=== PATIENT | female | born 1975 | race American Indian/Alaskan Native ===

== ENCOUNTER 2017-09-16 21:22 | Emergency (ER) | payer OTHER ==
[2017-09-16] MEDS ORDERED: DiphenhydrAMINE 50 mg/ml Inj IVP ONE (21:34)
--- NOTE | 2017-09-16 21:36 | ED PDOC ---
Arrival/HPI - General Time Seen by Provider: 09/16/17 21:27 Historian: Patient - History of Present Illness Narrative History of Present Illness (Text): 09/16/17 21:33 Laura Bates is a 41 year old female, whose past medical history includes chronic migraines, who presents to the emergency department complaining of headache with associated dizziness and nausea for a few hours tonight. Patient states headache seems more severe than usual. Patient denies any neck pain,back pain,fevers, chest pain, or any other complaints at this time. Time/Duration: 1-3 hours Symptom Onset: Gradual Symptom Course: Unchanged Activities at Onset: Light Context: Home Past Medical History - Provider Review Nursing Documentation Reviewed: Yes - Infectious Disease Hx of Infectious Diseases: None - Tetanus Immunization Tetanus Immunization: Up to Date - Renal Hx Kidney Stones: Yes (right) - Gastrointestinal Hx Diverticulitis: Yes - Psychiatric Hx Depression: No Hx Emotional Abuse: No Hx Physical Abuse: No Hx Substance Use: No - Surgical History Hx Tubal Ligation: Yes - Suicidal Assessment Feels Threatened In Home Enviroment: No Family/Social History - Physician Review Nursing Documentation Reviewed: Yes Family/Social History: No Known Family HX Smoking Status: Unknown If Ever Smoked Hx Alcohol Use: No Hx Substance Use: No Hx Substance Use Treatment: No Allergies/Home Meds Allergies/Adverse Reactions: Allergies ibuprofen [From Motrin] Allergy (Verified 09/16/17 21:32) SWELLING Home Medications: Home Meds Medication Instructions Recorded Confirmed Docusate [Colace] 100 mg PO HS 07/12/15 07/12/15 Review of Systems - Physician Review All systems were reviewed & negative as marked: Yes - Review of Systems Constitutional: absent: Fevers, Night Sweats Eyes: absent: Vision Changes ENT: absent: Hearing Changes Respiratory: absent: SOB, Cough Cardiovascular: absent: Chest Pain Gastrointestinal: Nausea. absent: Abdominal Pain Genitourinary Female: absent: Dysuria, Frequency Musculoskeletal: absent: Arthralgias, Back Pain Skin: absent: Rash, Pruritis Neurological: Headache, Dizziness Endocrine: absent: Diaphoresis Hemo/Lymphatic: absent: Adenopathy Psychiatric: absent: Depression Physical Exam Vital Signs Reviewed: Yes Vital Signs Temp Pulse Resp BP Pulse Ox 09/16/17 21:36 98.0 F 95 H 18 148/87 99 Temperature: Afebrile Blood Pressure: Normal Pulse: Tachycardic Respiratory Rate: Normal Appearance: Positive for: Well-Appearing, Non-Toxic, Comfortable Pain Distress: None Mental Status: Positive for: Alert and Oriented X 3 - Systems Exam Head: Present: Atraumatic, Normocephalic Pupils: Present: PERRL Extroacular Muscles: Present: EOMI Conjunctiva: Present: Normal Ears: Present: NORMAL TM Mouth: Present: Moist Mucous Membranes Pharnyx: Present: Normal Neck: Present: Normal Range of Motion. No: Meningeal Signs Respiratory/Chest: Present: Clear to Auscultation, Good Air Exchange. No: Respiratory Distress, Accessory Muscle Use Cardiovascular: Present: Regular Rate and Rhythm, Normal S1, S2. No: Murmurs Abdomen: Present: Normal Bowel Sounds. No: Tenderness, Distention, Peritoneal Signs Back: Present: Normal Inspection Upper Extremity: Present: Normal Inspection. No: Cyanosis, Edema Lower Extremity: Present: Normal Inspection. No: Edema Neurological: Present: GCS=15, CN II-XII Intact, Speech Normal, Motor Func Grossly Intact, Normal Sensory Function Skin: Present: Warm, Dry, Normal Color. No: Rashes Psychiatric: Present: Alert, Oriented x 3, Normal Insight, Normal Concentration Medical Decision Making ED Course and Treatment: 09/16/17 21:37 Impression: 41 year old female complaining of headache with associated nausea and dizziness for a few hours tonight. Differential Diagnosis included but are not limited to: Plan: -- Head CT w/o contrast -- EKG -- Labs -- Benadryl, Reglan, and IV Fluids -- Reassess and disposition Progress Notes: EKG: Ordered, reviewed, and independently interpreted the EKG. Rate : 76 BPM Rhythm : NSR Interpretation : Normal intervals. 09/16/17 23:39 CT Head Without Intravenous Contrast: Creator : Juan Cline MD FINDINGS: Brain: No intracranial hemorrhage. No mass. No definite edema. Ventricles: No hydrocephalus. Bones/joints: No acute fracture. Soft tissues: Unremarkable. Sinuses: No acute sinusitis. Mastoid air cells: No mastoid effusion. Orbits: Unremarkable as visualized. IMPRESSION: 1. No acute intracranial abnormality. - Lab Interpretations Lab Results: 09/16/17 21:39 09/16/17 21:39 Lab Results 09/16/17 21:39: WBC 10.1 D, RBC 4.65, Hgb 13.1, Hct 39.4, MCV 84.7, MCH 28.2, MCHC 33.2, RDW 13.7, Plt Count 316, MPV 10.4 09/16/17 21:39: Sodium 140, Potassium 3.8, Chloride 103, Carbon Dioxide 26, Anion Gap 15, BUN 14, Creatinine 0.8, Est GFR ( Amer) > 60, Est GFR (Non- Af Amer) > 60, Random Glucose 116 H, Calcium 9.6, Total Bilirubin 0.7, AST 26, ALT 41, Alkaline Phosphatase 81, Total Protein 7.8, Albumin 4.5, Globulin 3.2, Albumin/Globulin Ratio 1.4 09/16/17 21:30: POC Glucose (mg/dL) 77 I have reviewed the lab results: Yes - RAD Interpretation Radiology Orders: 09/16/17 21:36 HEAD W/O CONTRAST [CT] Stat - Medication Orders Current Medication Orders: Discontinued Medications Diphenhydramine HCl (Benadryl) 25 mg IVP ONCE ONE Stop: 09/16/17 21:35 Last Admin: 09/16/17 22:00 Dose: 25 mg IVP Administration Document 09/16/17 22:00 JO (Rec: 09/16/17 22:09 [id number] Charges for Administration # of IVP Administrations 1 Sodium Chloride (Sodium Chloride 0.9%) 1,000 mls @ 100 mls/hr IV .Q10H PERICO Last Admin: 09/16/17 22:00 Dose: 100 mls/hr eMAR Start Stop Document 09/16/17 22:00 JOL (Rec: 09/16/17 22:10 [id number] Intravenous Solution Start Date 09/16/17 Start Time 22:00 Metoclopramide HCl (Reglan) 10 mg IVP ONCE ONE Stop: 09/16/17 21:35 Last Admin: 09/16/17 22:00 Dose: 10 mg IVP Administration Document 09/16/17 22:00 JOL (Rec: 09/16/17 22:10 [id number] Charges for Administration # of IVP Administrations 1 - Scribe Statement The provider has reviewed the documentation as recorded by the Marjorie Clancy Provider Scribe Attestation: All medical record entries made by the Scribe were at my direction and personally dictated by me. I have reviewed the chart and agree that the record accurately reflects my personal performance of the history, physical exam, medical decision making, and the department course for this patient. I have also personally directed, reviewed, and agree with the discharge instructions and disposition Disposition/Present on Arrival - Present on Arrival Any Indicators Present on Arrival: No History of DVT/PE: No History of Uncontrolled Diabetes: No Urinary Catheter: No History Surgical Site Infection Following: None - Disposition Have Diagnosis and Disposition been Completed?: Yes Diagnosis: Migraine Disposition: HOME/ ROUTINE Disposition Time: 01:34 Patient Plan: Discharge Condition: GOOD Discharge Instructions (ExitCare): Migraine Headache (ED) Additional Instructions: Take meds as prescribed/follow up with your doctor this week Prescriptions: Acetaminophen/Butalbital/Caf [Fioricet] 1 tab PO Q6 PRN #16 tab PRN Reason: Headache Referrals: Hemant Vazquez MD [Primary Care Provider] - Follow up with primary Forms: [facility] (Italian)
[2017-09-16 21:38] VITALS: RESP 18; TEMP 98; O2SAT 99; BMI 29.2
[2017-09-16] MEDS ORDERED: Sodium Chloride 0.9% 1,000 ML IV SCH (21:45)
[2017-09-16 21:50] LABS: HEMATOCRIT 39.4 % (36.0-48.0); MEAN CELL VOLUME 84.7 fl (80.0-105.0); MEAN CORPUSCULAR HEMOGLOBIN 28.2 pg (25.0-35.0); MEAN CORPUSCULAR HGB CONC 33.2 g/dl (31.0-37.0); MEAN PLATELET VOLUME 10.4 fl (7.0-11.0); RED CELL DISTRIBUTION WIDTH 13.7 % (11.5-14.5); WHITE BLOOD COUNT 10.1 10^3/ul (4.5-11.0)
[2017-09-16 21:54] LABS: ALB/GLOB RATIO 1.4 (1.1-1.8); ALKALINE PHOSPHATASE 81 U/L (38-126); ALT/SGPT 41 U/L (7-56); AST/SGOT 26 U/L (14-36); BILIRUBIN,TOTAL 0.7 mg/dL (0.2-1.3); BLOOD UREA NITROGEN 14 mg/dL (7-21); CALCIUM 9.6 mg/dL (8.4-10.5); CARBON DIOXIDE 26 mmol/L (21-33); CHLORIDE 103 mmol/L (98-107); GFR AFRICAN-AMERICAN > 60; GLUCOSE,RANDOM 116 mg/dL (70-110); POTASSIUM 3.8 mmol/L (3.6-5.0); SODIUM 140 mmol/L (132-148); TOTAL PROTEIN 7.8 g/dL (5.8-8.3)
--- NOTE | 2017-09-16 23:34 | CT ---
EXAM: CT Head Without Intravenous Contrast CLINICAL HISTORY: 41 years old, female; Pain; Headache; Additional info: Headache/dizzy TECHNIQUE: Axial computed tomography images of the head/brain without intravenous contrast. All CT scans at this facility use one or more dose reduction techniques, viz.: automated exposure control; ma/kV adjustment per patient size (including targeted exams where dose is matched to indication; i.e. head); or iterative reconstruction technique. COMPARISON: No relevant prior studies available. FINDINGS: Brain: No intracranial hemorrhage. No mass. No definite edema. Ventricles: No hydrocephalus. Bones/joints: No acute fracture. Soft tissues: Unremarkable. Sinuses: No acute sinusitis. Mastoid air cells: No mastoid effusion. Orbits: Unremarkable as visualized. IMPRESSION: 1. No acute intracranial abnormality.
[2017-09-17 05:33] VITALS: BP 108/70; PULSE 77
--- NOTE | 2017-09-17 08:43 | CARD ---
APPROVED REPORT EKG Measurement Heart [id number] <Conclusion> Normal sinus rhythm Normal ECG
== END 2017-09-17 02:00 | disposition home or self-care (01) ==
LOC: ED 21:22
DX: G43.909 Migraine, unspecified, not intractable, without status migrainosus (principal); Z87.442 Personal history of urinary calculi; Z98.51 Tubal ligation status
CPT/HCPCS: 70450; 80053; 82948; 85027; 93005; 96374; 96375; 99285; J1200; J2765; J7040

== ENCOUNTER → 2019-02-03 | Outpatient (CLI) | payer OTHER | LOC: LAB 15:24 ==

== ENCOUNTER 2019-03-22 16:50 | Outpatient (CLI) | payer OTHER | END 2019-03-22 16:51 | disposition home or self-care (01) | LOC: RAD 16:50 ==